=== PATIENT | male | born 1960 | race Caucasian/White ===

== ENCOUNTER 2017-12-28 08:00 | Outpatient (RCR) | payer MEDICAID, SELFPAY ==
--- NOTE | 2017-11-30 10:09 | PTTR_ITS ---
DATE: 11/30/17 OBJECTIVE: Co treatment with PT Christophe Valenzuela Manual therapy: ([id number]). Pt received DTM and trigger point release techniques throughout bilateral cervical para spinals, upper traps, mid thoracic para spinals, and rhomboids. Direct treatment time: 25 Total treatment time: 25
--- NOTE | 2017-11-30 10:15 | PTTR_ITS ---
DATE: 11/30/17 SUBJECTIVE: Chandana states that the cranial sacral therapy has been helpful with controlling his migraines and cervical spine discomfort. He is complaining of stiffness throughout particularly throughout the low back and mid thoracic spine. He is anxious and complains of spasms through his LE. Particularly nocturnally. Only sleeping a couple hours per time. OBJECTIVE: Manual therapy: ([id number]). I have been following Caden on a regular basis for myofascial pain throughout along with headaches. He has been doing well with the therapy and feels that this gives him some temporary relief, and some control of his symptoms to have a few sessions of the cranial sacral therapy with Sowmya Arauz PTA, he felt that this was really helpful. He is here for re evaluation today. Articular: His active cervical movements and rotation is only about 20-30. In side bending is about the same with complaints of end range discomfort. His shoulder movements show that he has some compensatory movements with the (R) shoulder particularly at the mid range. He can use his (L) arm for assist, and can get his arm fully over head. His thumbs are around T8 level when reaching behind his back. AA range of the shoulder is full. Passively when I mobilize his cervical spine I can get close to full range too that is 88* of rotation, 45 -60*of side bending. Has end range drawing throughout the corresponding soft tissue structure stretch. His lumbar movements are full and painless with movement as well as his (B) hip motion. His hamstring length is 90* SLR fashion without any sciatica or LBP. Negative SLUMP test. He tolerates good resistance to the rotator cuff on the (R), although he states that he had a full thickness tear with an MRI last summer. They recommended a cuff repair. He opted not to do this because he did not want to be laid up for 3 month period. He has increased tone throughout the cervical thoracic and scapular musculature and this is cleared by Brenda Roy PTA refer to her note. I also mobilize the cervical spine along with PA glides to the thoracic spine. Direct treatment time: 30 minutes Total treatment time: 30 minutes ASSESSMENT: I can get relatively good ROM with his articular structures, although actively he has some limitation in pain indicating a significant myofascial issues. He feels better when he is having his therapy, became even more anxious when we talked about cutting him back further. He feels that the cranial sacral and mobilization are equally effective, so we are going to continue with both of these techniques. Will reduce some of Randy tx to 1x every 2 weeks now that his headaches/ migraines are under control, and we will see how this goes. He will continue with his HEP. Stay in touch with his primary care in regards to his total care not only his medication, but his anxiety issues etc... PLAN: He has a follow up appt with Sowmya Arauz PTA for cranial sacral work in 2 weeks. And I will see him again in 1 month.
--- NOTE | 2017-12-13 08:00 | PTTR_ITS ---
DATE: 12/13/17 SUBJECTIVE: Indicated he has had issue with HERNANDEZ pain for about 2 weeks now. Has had maybe 3 days without some sort of HERNANDEZ this time. Has been taking a new muscle relaxant, starts with s, and this seems to be helping with the leg spasms at night. Has been taking it 2 x per day, but would like to not have to continue with this due to side effects if taken too long. Very stiff in between shoulder blades today. OBJECTIVE: Manual therapy: ([id number]). Performed manual therapy consisting of supine positioned manual cervical traction, OA release, grade 1-2 PA mobs of cervical vertebrae, PRT to upper traps, lev scap and scalenes with focus on the right, dural tube traction with rock and glide technique, sacral decompression technique and soft tissue stretching of lev scap and scalenes. Transitioned to prone for grade 2 PA mobs to thoracic vertebrae, TPM to traps and rhomboids and CFM/ skin rolling technique to thoracic paraspinals. Performed COLOR PASTE MIXER frontal, parietal and temporal releases, hyoid release and Palacios LB, UB, neck and head procedures at no charge as well today. (20 minutes) To be seen by supervising PT in 2 weeks for recheck and mobilization as needed. Direct treatment time: 50 minutes, 20 minutes at no charge Total treatment time: 50 minutes
--- NOTE | 2017-12-28 09:21 | PTTR_ITS ---
DATE: 12/28/17 OBJECTIVE: Co Treatment with PT Christophe Valenzuela Manual therapy: ([id number]). Pt received DTM and trigger point release techniques throughout bilateral cervical para spinals, upper traps, and mid thoracic para spinals. Pt received renee fascial skin rolling to the mid thoracic regions. Direct treatment time: 25 Total treatment time: 25
--- NOTE | 2017-12-28 14:59 | PTTR_ITS ---
DATE: 12/28/17 SUBJECTIVE: Chandana is in fairly good spirits today. He states that he has had his ups and downs, but he is having more better days. He is at least 40% better than he was prior to therapy. OBJECTIVE: Manual therapy: ([id number]). Chandana is complaining of some mid/lower lumbar pain, which he gets after driving for long periods of time. He discusses his social situation. 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 He is having issues with his co living manager, creating significant stress. Articular: Cervical spine motion is limited within an articular pattern, but without pain on movement. He has some end range drawing throughout the posterior lateral cervical spine on the right greater than left. His lumbar movements are close to full and painfree. Bilateral shoulder motion is also full and painfree. AAROM of the cervical, with mobilization, shows a firmer end feel. I can eventually get 45 to 60 of side bending and 80 of rotation. His OA flexion is at 10 . His OA side bending is hypo mobile. After mobilizing his cervical spine I focus in on the upper region with a Grade 5 manipulation to the OA articulation. He has increased tone throughout the posterior cervical musculature. I perform Grade 3 PA glides in the prone position, which are hypo mobile, as well as to the costo vertebral articulation. I then performed Grade 5 manipulations to T6 through T12 with cavitation. Direct treatment time: 30 min. He is then seen by Minnie Roy PTA. See her note. Assessment: Chandana is doing better and is looking better. He feels that he continues to move in a positive direction, and this helps to control his migraines, etc. Plan: Have Chandana continue with his HEP. Reviewed this, Mulligan cervical stretches, etc. He has a follow up appointment in a couple of weeks. Christophe Valenzuela P.T. gc
== END 2017-12-29 23:59 | disposition home or self-care (01) ==
LOC: PT 08:00
PROVIDERS: PCP Family Medicine; Referring Provider Family Medicine; Visit Provider Family Medicine
DX: G89.4 Chronic pain syndrome (principal); M75.41 Impingement syndrome of right shoulder
CPT/HCPCS: 97140